=== PATIENT | female | born 1985 | race Caucasian/White ===

== ENCOUNTER 2020-08-17 20:28 | Observation (INO) | payer MEDICAID, SELFPAY ==
[~2020-08-17] VITALS: Ht 152.4 cm; Wt 63.5 kg
[2020-08-17] MEDS ORDERED: ONDANSETRON 4 MG/2 ML VIAL IM PRN (20:40)
[2020-08-17] MEDS ORDERED: cefTRIAXone 1,000 MG in LIDOCAINE MPF 1% 2.1 ML IM SCH (20:40)
[2020-08-17] MEDS ORDERED: LIDOCAINE MPF 1% 10 MG/ML VIAL INJ SCH (20:40)
[2020-08-17] MEDS ORDERED: MORPHINE SULFATE 5 MG/ML VIAL IM PRN (20:40)
[2020-08-17] MEDS ORDERED: cefTRIAXone 1,000 MG VIAL IM SCH (20:45)
[2020-08-17] MEDS ORDERED: MORPHINE SULFATE 10 MG/ML VIAL ONE (20:55)
[2020-08-17] MEDS ORDERED: ONDANSETRON 4 MG/2 ML VIAL ONE (20:56)
[2020-08-17] MEDS ORDERED: cefTRIAXone 1,000 MG VIAL ONE (20:57)
[2020-08-17] MEDS ORDERED: LIDOCAINE 1% 500 MG/50 ML VIAL ONE (20:58)
[2020-08-17 21:24] VITALS: BP 107/65
[2020-08-17 21:36] LABS: BASOPHILS % (AUTO) 0.3 % (0.0-2.0); EOSINOPHILS # (AUTO) 0.2 K/uL (0-0.4); EOSINOPHILS % (AUTO) 1.3 % (0.0-4.0); HEMATOCRIT 34.1 % (36-48); HEMOGLOBIN 11.5 g/dL (12.0-16.0); LYMPHOCYTES # (AUTO) 1.3 K/uL (2.5-16.5); LYMPHOCYTES % (AUTO) 10.7 % (20.5-51.1); MEAN CORPUSCULAR HEMOGLOBIN 32 pg (27-31); MEAN CORPUSCULAR HGB CONC 34 g/dL (33-37); MEAN CORPUSCULAR VOLUME 93.2 fL (80-94); MONOCYTES # (AUTO) 0.6 K/uL (0.8-1.0); MONOCYTES % (AUTO) 5.3 % (1.7-9.3); NEUTROPHILS # (AUTO) 9.7 K/uL (1.8-7.7); NEUTROPHILS % (AUTO) 82.4 % (42.2-75.2); PLATELET COUNT (AUTO) 208 K/uL (140-450); RED BLOOD CELL COUNT(AUTO) 3.66 MIL/uL (4.20-5.40); RED CELL DISTRIBUTION WIDTH 13.9 % (11.6-13.7); WHITE BLOOD COUNT (AUTO) 11.7 K/uL (4.8-10.8)
[2020-08-17 21:51] LABS: APPEARANCE,URINE CLEAR (CLEAR); BILIRUBIN,URINE NEGATIVE (NEGATIVE); BLOOD, URINE 3+ (NEGATIVE); COLOR,URINE YELLOW (YELLOW); LEUKOCYTE ESTERASE ,URINE 2+ (NEGATIVE); NITRITE, URINE NEGATIVE (NEGATIVE); UGLUCOSE NEGATIVE (NEGATIVE)
[2020-08-17 23:02] LABS: RBC,URINE TOO NUMEROUS TO COUN /HPF (0-5)
[2020-08-17 23:04] LABS: WBC,URINE 16-25 (MOD) /HPF (0-5)
== END 2020-08-17 23:30 | disposition home or self-care (01) ==
LOC: MLD 20:28
PROVIDERS: ADMIT Obstetrics & Gynecology; ATTEND Obstetrics & Gynecology
DX: O46.92 Antepartum hemorrhage, unspecified, second trimester (principal); Z20.828 Contact with and (suspected) exposure to other viral communicable diseases; O26.892 Other specified pregnancy related conditions, second trimester; R10.9 Unspecified abdominal pain; R82.90 Unspecified abnormal findings in urine; O09.522 Supervision of elderly multigravida, second trimester; Z3A.23 23 weeks gestation of pregnancy
CPT/HCPCS: 36415; 59025; 76805; 76817; 81001; 85025; 86886; 86900; 86901; 87086; 87426; G0378; J0696; J2001; J2270; J2405